=== PATIENT | male | born 1980 | race Caucasian/White ===

== ENCOUNTER 2020-07-16 22:14 | Emergency (ER) | payer OTHER ==
[~2020-07-16 22:14] MED LIST: BACTRIM DS TAB1 EACH PO; BUPRENORPHIN-N1 EACH SL; CATAPRES 0.1MG0.1 MG PO; FISH OIL 1,0001 EACH PO; GABAPENTIN800 MG PO; KEFLEX CAP 500500 MG PO; LISINOPRIL10 MG PO; MIRTAZAPINE45 MG PO; PAROXETINE HCL10 MG PO; TIZANIDINE HCL4 MG PO; ZYLOPRIM 300 M300 MG PO
[2020-07-17] MEDS ORDERED: LODINE CAP 300300 MG PO (00:07)
== END 2020-07-17 00:19 | disposition home or self-care (01) ==
LOC: ER1 22:14
DX: M25.531 Pain in right wrist (principal); I10 Essential (primary) hypertension; F17.210 Nicotine dependence, cigarettes, uncomplicated; Z86.19 Personal history of other infectious and parasitic diseases
CPT/HCPCS: 73110; 99283